=== PATIENT | male | born 1950 | race Two or more races ===

== ENCOUNTER 2016-11-25 21:10 | Inpatient (IN) | payer MEDICARE ==
[~2016-11-25] VITALS: Ht 165.1 cm; Wt 90.7 kg
[~2016-11-25 21:10] MED LIST: AMBIEN5 MG ORAL; ASPIR 8181 MG ORAL; SPIRONOLACTONE100 MG ORAL; TRAMADOL HCL50 MG ORAL; XIFAXAN200 MG ORAL
[2016-11-25 21:11] VITALS: BP 129/65
--- NOTE | 2016-11-25 21:37 | Emergency Room Report ---
History of Present Illness General Chief Complaint: Altered Level of Consciousness Source: Patient, Medical Record Present Illness HPI Patient presents by paramedics for altered mental status Initially the reports she feels the patient has taken too much sleeping pill which includes Ambien However she has any a paper from [place] past showing discharge paperwork indicating likely liver failure and hepatic encephalopathy No reports of vomiting no reports of diarrhea Patient symptoms have been worsening over the past one day No acute change in mental status however the feels that over the day he has been becoming more lethargic and slow to respond Otherwise the patient himself is a poor historian at this time lethargic and not able to respond to many questions he does open his eyes and is responsive The is also a poor historian and is not able to provide much medical input Allergies: Coded Allergies: No Known Allergies (Unverified , 11/25/16) Patient History Limited by: medical condition Past Medical History: see triage record Pertinent Family History: unable to obtain Reviewed Nursing Documentation: PMH: Agreed, PSxH: Agreed Nursing Documentation-PMH Past Medical History: No History, Except For Hx Cardiac Problems: Yes - liver Review of Systems All Other Systems: limited - Other than the ones mentioned in the history of present illness all others are reviewed however they do stay limited due to the patient's mental status Physical Exam Vital Signs Date Time Temp Pulse Resp B/P Pulse Ox O2 Delivery O2 Flow Rate FiO2 11/25/16 20:52 97.9 60 16 100/64 95 Room Air Sp02 EP Interpretation: reviewed, normal General Appearance: lethargic Head: normocephalic, atraumatic Eyes: bilateral eye EOMI, bilateral eye PERRL, bilateral eye scleral icterus ENT: hearing grossly normal, TMs + canals normal, uvula midline, dry mucus membranes Neck: full range of motion, supple, no meningismus, no bony tend Respiratory: lungs clear, normal breath sounds, no rhonchi, no respiratory distress, no retraction, no accessory muscle use Cardiovascular #1: normal peripheral pulses, regular rate, rhythm, no edema, no gallop, no JVD, no murmur Gastrointestinal: normal bowel sounds, non tender, no guarding, no hernia, no pulsatile mass, no rebound, other - Patient has a mildly distended abdomen, appears to be in line with ascites Genitourinary: no CVA tenderness Musculoskeletal: other - Patient is moving extremities without any obvious focal deficit, patient has had decreased GCS however Neurologic: motor strength/tone normal, sensory intact, other - Patient appears confused, is able to follow some very minimal commands, is not showing any signs of slurring of his speech Psychiatric: mood/affect normal Skin: jaundice Lymphatic: normal inspection, no adenopathy Medical Decision Making Diagnostic Impression: Primary Impression: Hepatic encephalopathy Additional Impressions: Hyponatremia Hyperkalemia ER Course Patient's presentation is in line with likely hepatic encephalopathy however other differentials such as Metabolic anomaly Medication reaction Intracranial pathology also entertained Patient has abnormal blood work including low sodium and high potassium Patient was provided with lactulose upon arrival Patient did not have the hyponatremia addressed with hypertonic saline in the emergency room given his presentation lack of any seizures and the likely chronic component to the patient's presentation Admitted for further inpatient care Labs Test 11/25/16 21:50 11/25/16 22:15 11/25/16 23:00 White Blood Count 8.5 K/UL (4.8-10.8) Red Blood Count 4.53 M/UL (4.70-6.10) Hemoglobin 13.5 G/DL (14.2-18.0) Hematocrit 41.5 % (42.0-52.0) Mean Corpuscular Volume 92 FL (80-99) Mean Corpuscular Hemoglobin 29.8 PG (27.0-31.0) Mean Corpuscular Hemoglobin Concent 32.5 G/DL (32.0-36.0) Red Cell Distribution Width 16.4 % (11.6-14.8) Platelet Count 149 K/UL (150-450) Mean Platelet Volume 7.7 FL (6.5-10.1) Neutrophils (%) (Auto) 74.1 % (45.0-75.0) Lymphocytes (%) (Auto) 12.4 % (20.0-45.0) Monocytes (%) (Auto) 8.6 % (1.0-10.0) Eosinophils (%) (Auto) 3.0 % (0.0-3.0) Basophils (%) (Auto) 1.9 % (0.0-2.0) Sodium Level 114 mEQ/L (135-145) Potassium Level 5.5 mEQ/L (3.4-4.9) Chloride Level 78 mEQ/L (98-107) Carbon Dioxide Level 26 mEQ/L (20-30) Anion Gap 10 (5-15) Blood Urea Nitrogen 22 mg/dL (7-23) Creatinine 1.1 mg/dL (0.7-1.2) Estimat Glomerular Filtration Rate > 60 mL/min (>60) Glucose Level 107 mg/dL (74-106) Calcium Level 9.2 mg/dL (8.6-10.2) Total Bilirubin 3.2 mg/dL (0.0-1.2) Direct Bilirubin 1.3 mg/dL (0.1-0.3) Aspartate Amino Transf (AST/SGOT) 77 U/L (5-40) Alanine Aminotransferase (ALT/SGPT) 38 U/L (3-41) Alkaline Phosphatase 115 U/L (40-129) Troponin I < 0.30 ng/mL (<=0.30) Total Protein 7.0 g/dL (6.6-8.7) Albumin 2.9 g/dL (3.5-5.2) Globulin 4.1 g/dL Albumin/Globulin Ratio 0.7 (1.0-2.7) Salicylates Level < 1 mg/dL (10-30) Acetaminophen Level < 10 ug/mL (10-30) Serum Alcohol < 10 mg/dL Ammonia 55 umol/L (16-60) Urine Color Pale yellow Urine Appearance Clear Urine pH 6.5 (4.5-8.0) Urine Specific [place] 1.010 (1.005-1.035) Urine Protein Negative (NEGATIVE) Urine Glucose (UA) Negative (NEGATIVE) Urine Ketones Negative (NEGATIVE) Urine Occult Blood Negative (NEGATIVE) Urine Nitrite Negative (NEGATIVE) Urine Bilirubin Negative (NEGATIVE) Urine Urobilinogen Normal MG/DL (0.0-1.0) Urine Leukocyte Esterase Negative (NEGATIVE) Urine Opiates Screen Negative (NEGATIVE) Urine Barbiturates Screen Negative (NEGATIVE) Phencyclidine (PCP) Screen Negative (NEGATIVE) Urine Amphetamines Screen Negative (NEGATIVE) Urine Benzodiazepines Screen Negative (NEGATIVE) Urine Cocaine Screen Negative (NEGATIVE) Urine Marijuana (THC) Screen Negative (NEGATIVE) Rhythm Strip Diag. Results EP Interpretation: yes Rate: 67 Rhythm: NSR, no PVC's, no ectopy Last Vital Signs Date Time Temp Pulse Resp B/P Pulse Ox O2 Delivery O2 Flow Rate FiO2 11/25/16 20:52 97.9 60 16 100/64 95 Room Air Status: improved Disposition: ADMITTED INPATIENT Condition: Serious DEAN KEARNS D.O. Nov 25, 2016 21:37
[2016-11-25] MEDS ORDERED: Lactulose 200 GM in NS Irrig 1000ml 700 ML RECTAL SCH (21:45)
[2016-11-25] MEDS ORDERED: Lactulose 20gm/30ml UDC ONE (21:57)
[2016-11-25 22:17] LABS: BASOPHILS % (AUTO) 1.9 % (0.0-2.0); LYMPHOCYTES % (AUTO) 12.4 % (20.0-45.0); MEAN CORPUSCULAR HEMOGLOBIN 29.8 PG (27.0-31.0); MEAN CORPUSCULAR HGB CONC 32.5 G/DL (32.0-36.0); MEAN CORPUSCULAR VOLUME 92 FL (80-99); MEAN PLATELET VOLUME 7.7 FL (6.5-10.1); MONOCYTES % (AUTO) 8.6 % (1.0-10.0); NEUTROPHILS % (AUTO) 74.1 % (45.0-75.0); PLATELET COUNT 149 K/UL (150-450); RED BLOOD COUNT 4.53 M/UL (4.70-6.10); RED CELL DISTRIBUTION WIDTH 16.4 % (11.6-14.8); WHITE BLOOD COUNT 8.5 K/UL (4.8-10.8)
[2016-11-25 22:31] LABS: TROPONIN I < 0.30 ng/mL (<=0.30)
[2016-11-25 22:36] LABS: ACETAMINOPHEN < 10 ug/mL (10-30); ALANINE AMINOTRANSFERASE 38 U/L (3-41); ALBUMIN/GLOBULIN RATIO 0.7 (1.0-2.7); ALCOHOL < 10 mg/dL; ANION GAP 10 (5-15); ASPARTATE AMINO TRANSFERASE 77 U/L (5-40); CALCIUM 9.2 mg/dL (8.6-10.2); CARBON DIOXIDE 26 mEQ/L (20-30); CHLORIDE 78 mEQ/L (98-107); CREATININE 1.1 mg/dL (0.7-1.2); GLOMERULAR FILTRATION RATE > 60 mL/min (>60); HEMOLYSIS 30; POTASSIUM 5.5 mEQ/L (3.4-4.9)
[2016-11-25] MEDS ORDERED: Lactulose 200 GM in NS Irrig 1000ml 700 ML RECTAL ONE (22:45)
[2016-11-25 22:52] LABS: SODIUM 114 mEQ/L (135-145)
[2016-11-25 23:02] VITALS: BP 93/46
[2016-11-25 23:08] LABS: BILIRUBIN,DIRECT 1.3 mg/dL (0.1-0.3)
[2016-11-25] MEDS ORDERED: Zolpidem 5mg tab ORAL PRN (23:15)
[2016-11-25] MEDS ORDERED: LORazepam Inj 2mg/ml 1ml IV PRN (23:15)
[2016-11-25] MEDS ORDERED: Morphine Sulfate 2mg/ml Inj IVP PRN (23:15)
[2016-11-25] MEDS ORDERED: Miralax 17gm pkt ORAL PRN (23:15)
[2016-11-25] MEDS ORDERED: Mylanta II UD 30ml ORAL PRN (23:15)
[2016-11-25 23:31] LABS: APPEARANCE,URINE CLEAR; KETONES,URINE NEGATIVE (NEGATIVE); LEUKOCYTE ESTERASE ,URINE NEGATIVE (NEGATIVE); NITRITE,URINE NEGATIVE (NEGATIVE); PH,URINE 6.5 (4.5-8.0); PROTEIN,URINE NEGATIVE (NEGATIVE); UROBILINOGEN,URINE NORMAL MG/DL (0.0-1.0)
[2016-11-26] VITALS (7 sets, daily range): BP systolic 99–128; BP diastolic 47–78
[2016-11-26] MEDS ORDERED: GABAPENTIN100 MG ORAL (03:07)
[2016-11-26] MEDS ORDERED: OMEPRAZOLE20 M2 ORAL (03:07)
[2016-11-26] MEDS ORDERED: FUROSEMIDE40 MG/4 ML ORAL (03:11)
[2016-11-26] MEDS ORDERED: FUROSEMIDE40 MG ORAL (03:11)
[2016-11-26] MEDS ORDERED: FUROSEMIDE80 M1 ORAL (03:11)
[2016-11-26] MEDS ORDERED: Cefepime 2gm ONE (06:15)
[2016-11-26] MEDS: Lactulose 20gm/30ml UDC ORAL SCH ×4 (06:31→17:11)
[2016-11-26] MEDS: Aspirin EC 81mg tab ORAL SCH (09:00)
[2016-11-26 10:30] LABS: BASOPHILS % (AUTO) 2.2 % (0.0-2.0); EOSINOPHILS % (AUTO) 4.1 % (0.0-3.0); MEAN CORPUSCULAR HEMOGLOBIN 29.5 PG (27.0-31.0); MEAN CORPUSCULAR HGB CONC 31.8 G/DL (32.0-36.0); MEAN CORPUSCULAR VOLUME 93 FL (80-99); MEAN PLATELET VOLUME 6.9 FL (6.5-10.1); MONOCYTES % (AUTO) 12.5 % (1.0-10.0); NEUTROPHILS % (AUTO) 66.2 % (45.0-75.0); PLATELET COUNT 132 K/UL (150-450); RED CELL DISTRIBUTION WIDTH 16.3 % (11.6-14.8); WHITE BLOOD COUNT 6.4 K/UL (4.8-10.8)
[2016-11-26 10:46] LABS: AMMONIA 106 umol/L (16-60)
[2016-11-26 10:52] LABS: ALANINE AMINOTRANSFERASE 31 U/L (3-41); ALBUMIN/GLOBULIN RATIO 0.6 (1.0-2.7); ANION GAP 14 (5-15); ASPARTATE AMINO TRANSFERASE 59 U/L (5-40); CALCIUM 8.7 mg/dL (8.6-10.2); CARBON DIOXIDE 21 mEQ/L (20-30); CHLORIDE 82 mEQ/L (98-107); CHOLESTEROL 117 mg/dL (< 200); CHOLESTEROL/HDL RATIO 3.3 (3.3-4.4); CREATININE 0.9 mg/dL (0.7-1.2); GLOMERULAR FILTRATION RATE > 60 mL/min (>60); HEMOLYSIS 5; LDL CHOLESTEROL (CALC.) 68 mg/dL (60-99); POTASSIUM 4.7 mEQ/L (3.4-4.9); TOTAL PROTEIN 5.9 g/dL (6.6-8.7)
[2016-11-26 11:46] LABS: SODIUM 117 mEQ/L (135-145)
[2016-11-26 11:57] LABS: BILIRUBIN,DIRECT 1.4 mg/dL (0.1-0.3)
--- NOTE | 2016-11-26 14:02 | GI Initial Consult Note ---
Melanie Donaldsonh Kenny N.P. 11/26/16 1402: History of Present Illness General Date patient seen: Nov 26, 2016 Time patient seen: 13:00 Reason for Hospitalization: Altered Level of Consciousness Referring physician: MARQUITA YUEN Reason for Consultation: HEPATIC ENCEPHALOPATHY Present Illness HPI Patient presents by paramedics for altered mental status Initially the reports she feels the patient has taken too much sleeping pill which includes Ambien However she has any a paper from [place] past showing discharge paperwork indicating likely liver failure and hepatic encephalopathy No reports of vomiting no reports of diarrhea Patient symptoms have been worsening over the past one day No acute change in mental status however the feels that over the day he has been becoming more lethargic and slow to respond Otherwise the patient himself is a poor historian at this time lethargic and not able to respond to many questions he does open his eyes and is responsive The is also a poor historian and is not able to provide much medical input GI NOTE: HPI as noted above. Pt seen on floor with at bedside. A&O NAD. According the , the patient appears much better than when originally admitted. The patient p/w with hepatic encephalopathy, hyponatremia, abnormal LFTs, hypoalbuminemia and elevated ammonia levels. Pt is currently pending a paracentesis. Unknown history of any endoscopic procedures. Home Meds Reported Medications Furosemide* (LASIX*) 40 Mg Tablet, 40 MG ORAL TWICE A DAY, TAB 0 Refills 11/26/16 Furosemide* (LASIX*) 80 Mg Tablet, 80 MG ORAL DAILY, TAB 11/26/16 Omeprazole (OMEPRAZOLE) 20 Mg Capsule.dr, 5 MG ORAL BEDTIME, CAP 11/26/16 Gabapentin* (GABAPENTIN*) 100 Mg Capsule, 100 MG ORAL THREE TIMES A DAY, CAP 11/26/16 Zolpidem Tartrate* (AMBIEN*) 5 Mg Tablet, 5 TAB ORAL BEDTIME Y for Insomnia, TAB 11/25/16 Aspirin* (ASPIR 81*) 81 Mg Tablet.dr, 81 MG ORAL DAILY, TAB 11/25/16 Tramadol Hcl* (ULTRAM*) 50 Mg Tablet, 50 TAB ORAL TWICE A DAY Y for For Pain, TAB 0 Refills one tab twice a day for 5 days 11/25/16 Spironolactone* (SPIRONOLACTONE*) 100 Mg Tablet, 50 MG ORAL TWICE A DAY, TAB 11/25/16 Rifaximin* (XIFAXAN*) 200 Mg Tablet, 550 TAB ORAL TWICE A DAY, MG 0 Refills One tab bid for 5 days 11/25/16 Discontinued Reported Medications Furosemide* (LASIX*) 40 Mg/4 Ml Solution, 40 TAB ORAL DAILY, TAB 11/26/16 Med list reviewed/reconciled: Yes Allergies: Coded Allergies: No Known Allergies (Unverified , 11/25/16) Patient History Limited by: medical condition History Provided By: Family Member, Medical Record PMH Narrative Limited by: medical condition Past Medical History: see triage record Pertinent Family History: unable to obtain Reviewed Nursing Documentation: PMH: Agreed, PSxH: Agreed Nursing Documentation-PMH Past Medical History: No History, Except For Hx Cardiac Problems: Yes - liver Review of Systems All Other Systems: limited Physical Exam Vital Signs Date Time Temp Pulse Resp B/P Pulse Ox O2 Delivery O2 Flow Rate FiO2 11/25/16 20:52 97.9 60 16 100/64 95 Room Air Sp02 EP Interpretation: reviewed Labs Laboratory Tests Test 11/25/16 21:50 11/25/16 22:15 11/25/16 23:00 11/26/16 09:40 White Blood Count 8.5 K/UL (4.8-10.8) 6.4 K/UL (4.8-10.8) Red Blood Count 4.53 M/UL (4.70-6.10) L 4.20 M/UL (4.70-6.10) L Hemoglobin 13.5 G/DL (14.2-18.0) L 12.4 G/DL (14.2-18.0) L Hematocrit 41.5 % (42.0-52.0) L 38.9 % (42.0-52.0) L Mean Corpuscular Volume 92 FL (80-99) 93 FL (80-99) Mean Corpuscular Hemoglobin 29.8 PG (27.0-31.0) 29.5 PG (27.0-31.0) Mean Corpuscular Hemoglobin Concent 32.5 G/DL (32.0-36.0) 31.8 G/DL (32.0-36.0) L Red Cell Distribution Width 16.4 % (11.6-14.8) H 16.3 % (11.6-14.8) H Platelet Count 149 K/UL (150-450) L 132 K/UL (150-450) L Mean Platelet Volume 7.7 FL (6.5-10.1) 6.9 FL (6.5-10.1) Neutrophils (%) (Auto) 74.1 % (45.0-75.0) 66.2 % (45.0-75.0) Lymphocytes (%) (Auto) 12.4 % (20.0-45.0) L 15.0 % (20.0-45.0) L Monocytes (%) (Auto) 8.6 % (1.0-10.0) 12.5 % (1.0-10.0) H Eosinophils (%) (Auto) 3.0 % (0.0-3.0) 4.1 % (0.0-3.0) H Basophils (%) (Auto) 1.9 % (0.0-2.0) 2.2 % (0.0-2.0) H Sodium Level 114 mEQ/L (135-145) *L 117 mEQ/L (135-145) *L Potassium Level 5.5 mEQ/L (3.4-4.9) H 4.7 mEQ/L (3.4-4.9) Chloride Level 78 mEQ/L (98-107) L 82 mEQ/L (98-107) L Carbon Dioxide Level 26 mEQ/L (20-30) 21 mEQ/L (20-30) Anion Gap 10 (5-15) 14 (5-15) Blood Urea Nitrogen 22 mg/dL (7-23) 19 mg/dL (7-23) Creatinine 1.1 mg/dL (0.7-1.2) 0.9 mg/dL (0.7-1.2) Estimat Glomerular Filtration Rate > 60 mL/min (>60) > 60 mL/min (>60) Glucose Level 107 mg/dL (74-106) H 93 mg/dL (74-106) Calcium Level 9.2 mg/dL (8.6-10.2) 8.7 mg/dL (8.6-10.2) Total Bilirubin 3.2 mg/dL (0.0-1.2) H 3.5 mg/dL (0.0-1.2) H Direct Bilirubin 1.3 mg/dL (0.1-0.3) H 1.4 mg/dL (0.1-0.3) H Aspartate Amino Transf (AST/SGOT) 77 U/L (5-40) H 59 U/L (5-40) H Alanine Aminotransferase (ALT/SGPT) 38 U/L (3-41) 31 U/L (3-41) Alkaline Phosphatase 115 U/L (40-129) 86 U/L (40-129) Troponin I < 0.30 ng/mL (<=0.30) Total Protein 7.0 g/dL (6.6-8.7) 5.9 g/dL (6.6-8.7) L Albumin 2.9 g/dL (3.5-5.2) L 2.4 g/dL (3.5-5.2) L Globulin 4.1 g/dL 3.5 g/dL Albumin/Globulin Ratio 0.7 (1.0-2.7) L 0.6 (1.0-2.7) L Salicylates Level < 1 mg/dL (10-30) L Acetaminophen Level < 10 ug/mL (10-30) L Serum Alcohol < 10 mg/dL Ammonia 55 umol/L (16-60) 106 umol/L (16-60) H Urine Color Pale yellow Urine Appearance Clear Urine pH 6.5 (4.5-8.0) Urine Specific [place] 1.010 (1.005-1.035) Urine Protein Negative (NEGATIVE) Urine Glucose (UA) Negative (NEGATIVE) Urine Ketones Negative (NEGATIVE) Urine Occult Blood Negative (NEGATIVE) Urine Nitrite Negative (NEGATIVE) Urine Bilirubin Negative (NEGATIVE) Urine Urobilinogen Normal MG/DL (0.0-1.0) Urine Leukocyte Esterase Negative (NEGATIVE) Urine Opiates Screen Negative (NEGATIVE) Urine Barbiturates Screen Negative (NEGATIVE) Phencyclidine (PCP) Screen Negative (NEGATIVE) Urine Amphetamines Screen Negative (NEGATIVE) Urine Benzodiazepines Screen Negative (NEGATIVE) Urine Cocaine Screen Negative (NEGATIVE) Urine Marijuana (THC) Screen Negative (NEGATIVE) Triglycerides Level 64 mg/dL (< 150) Cholesterol Level 117 mg/dL (< 200) LDL Cholesterol 68 mg/dL (60-99) HDL Cholesterol 36 mg/dL (> 60) Cholesterol/HDL Ratio 3.3 (3.3-4.4) Thyroid Stimulating Hormone (TSH) 2.390 uIU/mL (0.300-4.500) General Appearance: well appearing, no apparent distress, alert Head: normocephalic EENT: normal ENT inspection Neck: supple Respiratory: normal breath sounds Cardiovascular: normal rate Gastrointestinal: normal inspection, non tender, distended, ascites Rectal: deferred Genitourinary: no CVA tenderness Musculoskeletal: normal inspection, back normal Neurologic: normal inspection, alert Current Medications Current Medications Medications (Trade) Dose Ordered Sig/Sparkle Route PRN Reason Start Time Stop Time Status Last Admin Dose Admin Acetaminophen (Tylenol) 650 mg Q4H PRN ORAL fever 11/25/16 23:15 12/25/16 23:14 Al Hydroxide/Mg Hydroxide (Mylanta II) 30 ml Q6H PRN ORAL dyspepsia 11/25/16 23:15 12/25/16 23:14 Aspirin (Ecotrin) 81 mg DAILY ORAL 11/26/16 09:00 12/26/16 08:59 Cefepime HCl/ Dextrose (Maxipime/D5W 50ml) 50 ml @ 50 mls/hr EVERY 8 HOURS IVPB 11/26/16 14:00 12/03/16 13:59 11/26/16 13:34 Dextrose (Dextrose 50%) STAT PRN IV Hypoglycemia 11/25/16 23:15 12/25/16 23:14 Lactulose 30 gm 30 gm EVERY 6 HOURS ORAL 11/26/16 00:00 12/26/16 00:00 11/26/16 11:58 Lorazepam (Ativan 2mg/ml 1ml) 0.5 mg Q4H PRN IV For Anxiety 11/25/16 23:15 12/02/16 23:14 Morphine Sulfate (Morphine Sulfate) 2 mg EVERY 4 HOURS PRN IVP For Pain 11/25/16 23:15 12/02/16 23:14 Ondansetron HCl (Zofran) 4 mg Q6H PRN IVP Nausea & Vomiting 11/25/16 23:15 12/25/16 23:14 Polyethylene Glycol (Miralax) 17 gm HSPRN PRN ORAL Constipation 11/25/16 23:15 12/25/16 23:14 Zolpidem Tartrate (Ambien) 5 mg HSPRN PRN ORAL Insomnia 11/25/16 23:15 12/25/16 23:14 GI: Plan Problems: (1) Hypoalbuminemia (2) LFTs abnormal (3) Hyponatremia (4) Acute encephalopathy (5) Hepatic encephalopathy Plan ordered abdominal U/S ordered hep panel, AFP U/S paracentesis pending elevated ammonia >> lactulose + xifaxan PPI electrolyte replacement low sodium diet fu labs outpatient GI procedures >> unknown history >> recommend EGD to evaluate for esophageal varices given history of cirrhosis Discussed with Dr. Drummond. Thank you for referring this patient, we will follow. JOSELITO DRUMMOND 11/27/16 1025: History of Present Illness General Reason for Hospitalization: Altered Level of Consciousness Present Illness Home Meds Reported Medications Furosemide* (LASIX*) 40 Mg Tablet, 40 MG ORAL TWICE A DAY, TAB 0 Refills 11/26/16 Furosemide* (LASIX*) 80 Mg Tablet, 80 MG ORAL DAILY, TAB 11/26/16 Omeprazole (OMEPRAZOLE) 20 Mg Capsule.dr, 5 MG ORAL BEDTIME, CAP 11/26/16 Gabapentin* (GABAPENTIN*) 100 Mg Capsule, 100 MG ORAL THREE TIMES A DAY, CAP 11/26/16 Zolpidem Tartrate* (AMBIEN*) 5 Mg Tablet, 5 TAB ORAL BEDTIME Y for Insomnia, TAB 11/25/16 Aspirin* (ASPIR 81*) 81 Mg Tablet.dr, 81 MG ORAL DAILY, TAB 11/25/16 Tramadol Hcl* (ULTRAM*) 50 Mg Tablet, 50 TAB ORAL TWICE A DAY Y for For Pain, TAB 0 Refills one tab twice a day for 5 days 11/25/16 Spironolactone* (SPIRONOLACTONE*) 100 Mg Tablet, 50 MG ORAL TWICE A DAY, TAB 11/25/16 Rifaximin* (XIFAXAN*) 200 Mg Tablet, 550 TAB ORAL TWICE A DAY, MG 0 Refills One tab bid for 5 days 11/25/16 Discontinued Reported Medications Furosemide* (LASIX*) 40 Mg/4 Ml Solution, 40 TAB ORAL DAILY, TAB 11/26/16 Allergies: Coded Allergies: No Known Allergies (Unverified , 11/25/16) GI: Plan Plan The patient was seen and examined at bedside and all new and available data was reviewed in the patients chart. I agree with the above findings, impression and plan. (Patient seen earlier today. Signature stamp does not reflect patient encounter time.). -[facility]En[facility] Kenny N.PEmily Nov 26, 2016 14:02 JOSELITO DRUMMOND Nov 27, 2016 10:25
--- NOTE | 2016-11-26 15:24 | History and Physical ---
History of Present Illness General Date patient seen: Nov 26, 2016 Reason for Hospitalization: Altered Level of Consciousness Present Illness HPI 66 year old male with hx of end stage liver disease with recurrent ascites, presents by paramedics for altered mental status Pt was just recently discharged from [facility], with dx of liver failure and hepatic encephalopathy there are no reports of vomiting no reports of diarrhea, Patient symptoms have been worsening over the past one day Pt is lethargic and not able to respond to many questions he does open his eyes and is responsive Allergies: Coded Allergies: No Known Allergies (Unverified , 11/25/16) Medication History Scheduled Aspirin* (Aspir 81*), 81 MG ORAL DAILY, (Reported) Furosemide* (Lasix*), 80 MG ORAL DAILY, (Reported) Furosemide* (Lasix*), 40 MG ORAL TWICE A DAY, (Reported) Gabapentin* (Gabapentin*), 100 MG ORAL THREE TIMES A DAY, (Reported) Omeprazole (Omeprazole), 5 MG ORAL BEDTIME, (Reported) Rifaximin* (Xifaxan*), 550 TAB ORAL TWICE A DAY, (Reported) Spironolactone* (Spironolactone*), 50 MG ORAL TWICE A DAY, (Reported) Scheduled PRN Tramadol Hcl* (Ultram*), 50 TAB ORAL TWICE A DAY PRN for For Pain, (Reported) Zolpidem Tartrate* (Ambien*), 5 TAB ORAL BEDTIME PRN for Insomnia, (Reported) Discontinued Medications Furosemide* (Lasix*), 40 TAB ORAL DAILY, (Reported) Discontinued Reason: Prescription changed Patient History Healthcare decision maker Resuscitation status Full Code Advanced Directive on File Past Medical/Surgical History Past Medical/Surgical History: (1) End stage liver disease (2) Hepatic encephalopathy Review of Systems All Other Systems: negative except mentioned in HPI Physical Exam Lines, tubes and drains: peripheral, central line Neck: non-tender, normal alignment Respiratory/Chest: chest wall non-tender, lungs clear Genitourinary/Rectal: normal genital exam, normal rectal exam Extremities: normal range of motion Skin Exam: normal pigmentation 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 Last 24 Hour Vital Signs Date Time Temp Pulse Resp B/P Pulse Ox O2 Delivery O2 Flow Rate FiO2 11/26/16 12:00 98.6 68 19 107/70 100 Room Air 11/26/16 08:00 97.8 69 16 105/74 100 Room Air 11/26/16 04:00 98.2 65 16 114/65 98 Room Air 11/26/16 01:30 98.2 64 16 128/78 98 Room Air 11/26/16 01:05 97.9 92 13 115/47 100 Room Air 11/26/16 00:26 92 13 115/47 100 Room Air 11/25/16 23:02 97.9 62 12 93/46 96 Room Air 11/25/16 21:11 97.9 77 13 129/65 96 Room Air 11/25/16 20:52 97.9 60 16 100/64 95 Room Air Intake and Output 11/25/16 11/26/16 19:00 07:00 Intake Total 500 ml Output Total 350 ml Balance 150 ml Intake IV Total 500 ml Output Urine Total 350 ml # Voids 2 Laboratory Tests Test 11/25/16 21:50 11/25/16 22:15 11/25/16 23:00 11/26/16 09:40 White Blood Count 8.5 K/UL (4.8-10.8) 6.4 K/UL (4.8-10.8) Red Blood Count 4.53 M/UL (4.70-6.10) L 4.20 M/UL (4.70-6.10) L Hemoglobin 13.5 G/DL (14.2-18.0) L 12.4 G/DL (14.2-18.0) L Hematocrit 41.5 % (42.0-52.0) L 38.9 % (42.0-52.0) L Mean Corpuscular Volume 92 FL (80-99) 93 FL (80-99) Mean Corpuscular Hemoglobin 29.8 PG (27.0-31.0) 29.5 PG (27.0-31.0) Mean Corpuscular Hemoglobin Concent 32.5 G/DL (32.0-36.0) 31.8 G/DL (32.0-36.0) L Red Cell Distribution Width 16.4 % (11.6-14.8) H 16.3 % (11.6-14.8) H Platelet Count 149 K/UL (150-450) L 132 K/UL (150-450) L Mean Platelet Volume 7.7 FL (6.5-10.1) 6.9 FL (6.5-10.1) Neutrophils (%) (Auto) 74.1 % (45.0-75.0) 66.2 % (45.0-75.0) Lymphocytes (%) (Auto) 12.4 % (20.0-45.0) L 15.0 % (20.0-45.0) L Monocytes (%) (Auto) 8.6 % (1.0-10.0) 12.5 % (1.0-10.0) H Eosinophils (%) (Auto) 3.0 % (0.0-3.0) 4.1 % (0.0-3.0) H Basophils (%) (Auto) 1.9 % (0.0-2.0) 2.2 % (0.0-2.0) H Sodium Level 114 mEQ/L (135-145) *L 117 mEQ/L (135-145) *L Potassium Level 5.5 mEQ/L (3.4-4.9) H 4.7 mEQ/L (3.4-4.9) Chloride Level 78 mEQ/L (98-107) L 82 mEQ/L (98-107) L Carbon Dioxide Level 26 mEQ/L (20-30) 21 mEQ/L (20-30) Anion Gap 10 (5-15) 14 (5-15) Blood Urea Nitrogen 22 mg/dL (7-23) 19 mg/dL (7-23) Creatinine 1.1 mg/dL (0.7-1.2) 0.9 mg/dL (0.7-1.2) Estimat Glomerular Filtration Rate > 60 mL/min (>60) > 60 mL/min (>60) Glucose Level 107 mg/dL (74-106) H 93 mg/dL (74-106) Calcium Level 9.2 mg/dL (8.6-10.2) 8.7 mg/dL (8.6-10.2) Total Bilirubin 3.2 mg/dL (0.0-1.2) H 3.5 mg/dL (0.0-1.2) H Direct Bilirubin 1.3 mg/dL (0.1-0.3) H 1.4 mg/dL (0.1-0.3) H Aspartate Amino Transf (AST/SGOT) 77 U/L (5-40) H 59 U/L (5-40) H Alanine Aminotransferase (ALT/SGPT) 38 U/L (3-41) 31 U/L (3-41) Alkaline Phosphatase 115 U/L (40-129) 86 U/L (40-129) Troponin I < 0.30 ng/mL (<=0.30) Total Protein 7.0 g/dL (6.6-8.7) 5.9 g/dL (6.6-8.7) L Albumin 2.9 g/dL (3.5-5.2) L 2.4 g/dL (3.5-5.2) L Globulin 4.1 g/dL 3.5 g/dL Albumin/Globulin Ratio 0.7 (1.0-2.7) L 0.6 (1.0-2.7) L Salicylates Level < 1 mg/dL (10-30) L Acetaminophen Level < 10 ug/mL (10-30) L Serum Alcohol < 10 mg/dL Ammonia 55 umol/L (16-60) 106 umol/L (16-60) H Urine Color Pale yellow Urine Appearance Clear Urine pH 6.5 (4.5-8.0) Urine Specific [place] 1.010 (1.005-1.035) Urine Protein Negative (NEGATIVE) Urine Glucose (UA) Negative (NEGATIVE) Urine Ketones Negative (NEGATIVE) Urine Occult Blood Negative (NEGATIVE) Urine Nitrite Negative (NEGATIVE) Urine Bilirubin Negative (NEGATIVE) Urine Urobilinogen Normal MG/DL (0.0-1.0) Urine Leukocyte Esterase Negative (NEGATIVE) Urine Opiates Screen Negative (NEGATIVE) Urine Barbiturates Screen Negative (NEGATIVE) Phencyclidine (PCP) Screen Negative (NEGATIVE) Urine Amphetamines Screen Negative (NEGATIVE) Urine Benzodiazepines Screen Negative (NEGATIVE) Urine Cocaine Screen Negative (NEGATIVE) Urine Marijuana (THC) Screen Negative (NEGATIVE) Triglycerides Level 64 mg/dL (< 150) Cholesterol Level 117 mg/dL (< 200) LDL Cholesterol 68 mg/dL (60-99) HDL Cholesterol 36 mg/dL (> 60) Cholesterol/HDL Ratio 3.3 (3.3-4.4) Thyroid Stimulating Hormone (TSH) 2.390 uIU/mL (0.300-4.500) Height (Feet): 5 Height (Inches): 5.00 Weight (Pounds): 200 Medications Current Medications Medications (Trade) Dose Ordered Sig/Sparkle Route PRN Reason Start Time Stop Time Status Last Admin Dose Admin Acetaminophen (Tylenol) 650 mg Q4H PRN ORAL fever 11/25/16 23:15 12/25/16 23:14 Al Hydroxide/Mg Hydroxide (Mylanta II) 30 ml Q6H PRN ORAL dyspepsia 11/25/16 23:15 12/25/16 23:14 Aspirin (Ecotrin) 81 mg DAILY ORAL 11/26/16 09:00 12/26/16 08:59 Cefepime HCl/ Dextrose (Maxipime/D5W 50ml) 50 ml @ 50 mls/hr EVERY 8 HOURS IVPB 11/26/16 14:00 12/03/16 13:59 11/26/16 13:34 Dextrose (Dextrose 50%) STAT PRN IV Hypoglycemia 11/25/16 23:15 12/25/16 23:14 Lactulose 30 gm 30 gm EVERY 6 HOURS ORAL 11/26/16 00:00 12/26/16 00:00 11/26/16 11:58 Lorazepam (Ativan 2mg/ml 1ml) 0.5 mg Q4H PRN IV For Anxiety 11/25/16 23:15 12/02/16 23:14 Morphine Sulfate (Morphine Sulfate) 2 mg EVERY 4 HOURS PRN IVP For Pain 11/25/16 23:15 12/02/16 23:14 Ondansetron HCl (Zofran) 4 mg Q6H PRN IVP Nausea & Vomiting 11/25/16 23:15 12/25/16 23:14 Pantoprazole (Protonix) 40 mg DAILY IVP 11/27/16 09:00 12/27/16 08:59 Polyethylene Glycol (Miralax) 17 gm HSPRN PRN ORAL Constipation 11/25/16 23:15 12/25/16 23:14 Rifaximin (Xifaxan) 550 mg EVERY 12 HOURS ORAL 11/26/16 21:00 12/03/16 20:59 Zolpidem Tartrate (Ambien) 5 mg HSPRN PRN ORAL Insomnia 11/25/16 23:15 12/25/16 23:14 Assessment/Plan Problem List: (1) Acute encephalopathy ICD Codes: G93.40 - Encephalopathy, unspecified SNOMED: 3934575 (2) End stage liver disease ICD Codes: K72.90 - Hepatic failure, unspecified without coma SNOMED: 478069894 (3) Ascites ICD Codes: R18.8 - Other ascites SNOMED: 112912428 (4) Hypoalbuminemia ICD Codes: E88.09 - Other disorders of plasma-protein metabolism, not elsewhere classified SNOMED: 469380498 (5) Hepatic encephalopathy ICD Codes: K72.90 - Hepatic failure, unspecified without coma SNOMED: 03702851 Assessment/Plan lactulose check Na paracenthesis GI evaluation pt seems to have end stage liver disease MARQUITA EDGAR Nov 26, 2016 15:24
--- NOTE | 2016-11-26 16:26 | Consultation ---
Consult Note Consult Note asked to eval for Hyponatremia- Patient presents by paramedics for altered mental status Initially the reports she feels the patient has taken too much sleeping pill which includes Ambien However she has any a paper from [email or web address] past showing discharge paperwork indicating likely liver failure and hepatic encephalopathy No reports of vomiting no reports of diarrhea Patient symptoms have been worsening over the past one day No acute change in mental status however the feels that over the day he has been becoming more lethargic and slow to respond Otherwise the patient himself is a poor historian at this time lethargic and not able to respond to many questions he does open his eyes and is responsive The is also a poor historian and is not able to provide much medical input. Patient examined - data reviewed. Has edema, ascitis Assessment/Plan HypoNatremia related to edematous state due to Liver cirhosis- Encephalopathy- HypoAlbuminemia due to above Plan: Saline+ Slow diurese Monitor lytes and renal parameters Per orders- Optimize hepatic function- OLGA HAYNES Nov 26, 2016 16:26
--- NOTE | 2016-11-26 17:41 | Cardiology Report ---
APPROVED REPORT EKG Measurement Heart [id number] Sinus rhythm with 1st degree AV block Low voltage QRS Cannot rule out Anterior infarct, age undetermined Abnormal ECG
[2016-11-26] MEDS ORDERED: NaCl 3% 500ml 250 ML IV ONE (18:00)
[2016-11-26] MEDS: Rifaximin 550mg tab ORAL SCH (21:59)
[2016-11-27 00:01] VITALS: BP 99/58
[2016-11-27 04:00] VITALS: BP 103/55
[2016-11-27] MEDS: Lactulose 20gm/30ml UDC ORAL SCH ×4 (05:52→18:44)
[2016-11-27 06:55] LABS: INR 1.9 (0.9-1.1); PROTHROMBIN TIME 19.6 SEC (9.30-11.50)
[2016-11-27 07:23] LABS: ALANINE AMINOTRANSFERASE 30 U/L (3-41); ALBUMIN/GLOBULIN RATIO 0.6 (1.0-2.7); ANION GAP 13 (5-15); ASPARTATE AMINO TRANSFERASE 56 U/L (5-40); CALCIUM 8.6 mg/dL (8.6-10.2); CARBON DIOXIDE 22 mEQ/L (20-30); CHLORIDE 87 mEQ/L (98-107); CREATININE 0.9 mg/dL (0.7-1.2); GLOMERULAR FILTRATION RATE > 60 mL/min (>60); HEMOLYSIS 10; POTASSIUM 4.7 mEQ/L (3.4-4.9); SODIUM 122 mEQ/L (135-145); TOTAL PROTEIN 6.1 g/dL (6.6-8.7)
[2016-11-27 07:30] LABS: BASOPHILS % (AUTO) 1.7 % (0.0-2.0); EOSINOPHILS % (AUTO) 1.9 % (0.0-3.0); MEAN CORPUSCULAR HGB CONC 33.2 G/DL (32.0-36.0); MEAN CORPUSCULAR VOLUME 90 FL (80-99); MEAN PLATELET VOLUME 8.1 FL (6.5-10.1); MONOCYTES % (AUTO) 15.7 % (1.0-10.0); NEUTROPHILS % (AUTO) 71.7 % (45.0-75.0); PLATELET COUNT 129 K/UL (150-450); RED BLOOD COUNT 4.08 M/UL (4.70-6.10); RED CELL DISTRIBUTION WIDTH 16.1 % (11.6-14.8); WHITE BLOOD COUNT 7.4 K/UL (4.8-10.8)
[2016-11-27 08:00] VITALS: BP 105/66
[2016-11-27 08:32] LABS: BILIRUBIN,DIRECT 1.3 mg/dL (0.1-0.3)
[2016-11-27] MEDS: Aspirin EC 81mg tab ORAL SCH (09:00)
[2016-11-27] MEDS: Rifaximin 550mg tab ORAL SCH ×2 (09:02→21:22)
[2016-11-27] MEDS: Pantoprazole Inj IVP SCH (09:03)
--- NOTE | 2016-11-27 10:25 | General Progress Note ---
Assessment/Plan Status: unchanged Status Narrative Na a bit higher Assessment/Plan status: HypoNatremia related to edematous state due to Liver cirhosis- Encephalopathy- HypoAlbuminemia due to above Urinary Obstruction , over 450 cc retention Plan: alberts Saline+ Slow diurese Monitor lytes and renal parameters Per orders- Optimize hepatic function- Subjective ROS Limited/Unobtainable: No Constitutional: Reports: malaise, weakness Allergies: Coded Allergies: No Known Allergies (Unverified , 11/25/16) Objective Last 24 Hour Vital Signs Date Time Temp Pulse Resp B/P Pulse Ox O2 Delivery O2 Flow Rate FiO2 11/27/16 08:00 97.5 75 22 105/66 99 11/27/16 04:00 97.8 80 18 103/55 95 Room Air 11/27/16 00:01 97.5 75 18 99/58 96 Room Air 11/26/16 20:00 97.1 76 18 99/67 96 Room Air 11/26/16 16:26 98.2 67 20 105/67 100 Room Air 11/26/16 12:00 98.6 68 19 107/70 100 Room Air Intake and Output 11/26/16 11/27/16 19:00 07:00 Intake Total 150 ml 50 ml Output Total 1150 ml Balance 150 ml -1100 ml Intake Oral 150 ml IV Total 50 ml Output Urine Total 1150 ml # Voids 3 2 # Bowel Movements 1 Laboratory Tests 11/27/16 05:55: White Blood Count 7.4, Red Blood Count 4.08L, Hemoglobin 12.2L, Hematocrit 36.9L , Mean Corpuscular Volume 90, Mean Corpuscular Hemoglobin 30.0, Mean Corpuscular Hemoglobin Concent 33.2, Red Cell Distribution Width 16.1H, Platelet Count 129L, Mean Platelet Volume 8.1, Neutrophils (%) (Auto) 71.7, Lymphocytes (%) (Auto) 9.0L, Monocytes (%) (Auto) 15.7H, Eosinophils (%) (Auto) 1.9, Basophils (%) (Auto) 1.7, Prothrombin Time 19.6H, Prothromb Time International Ratio 1.9H, Activated Partial Thromboplast Time 35H, Sodium Level 122L, Potassium Level 4.7, Chloride Level 87L, Carbon Dioxide Level 22, Anion Gap 13, Blood Urea Nitrogen 15, Creatinine 0.9, Estimat Glomerular Filtration Rate > 60, Glucose Level 114H, Calcium Level 8.6, Total Bilirubin 3.4H, Direct Bilirubin 1.3H, Aspartate Amino Transf (AST/SGOT) 56H, Alanine Aminotransferase (ALT/SGPT) 30, Alkaline Phosphatase 97, Ammonia 59, Total Protein 6.1L, Albumin 2.3L, Globulin 3.8, Albumin/Globulin Ratio 0.6L, Alpha Fetoprotein [Pending], Hepatitis A IgM Antibody [Pending], Hepatitis B Surface Antigen [Pending], Hepatitis B Core IgM Antibody [Pending], Hepatitis C Antibody [Pending] Height (Feet): 5 Height (Inches): 5.00 Weight (Pounds): 200 General Appearance: lethargic, confused Neck: supple Cardiovascular: normal rate Respiratory/Chest: decreased breath sounds Abdomen: distended Edema: 1+ Arm (L), 1+ Arm (R), 1+ Leg (L), 1+ Leg (R), 1+ Pedal (L), 1+ Pedal ( R), 1+ Generalized Objective other PE not changed OLGA HAYNES Nov 27, 2016 10:25
[2016-11-27] MEDS ORDERED: NaCl 3% 500ml 500 ML IV ONE (11:00)
[2016-11-27 12:00] VITALS: BP 115/68
--- NOTE | 2016-11-27 12:13 | GI Progress Note ---
Assessment/Plan Problems: (1) Ascites ICD Codes: R18.8 - Other ascites SNOMED: 437594358 (2) Acute encephalopathy ICD Codes: G93.40 - Encephalopathy, unspecified SNOMED: 2971640 (3) End stage liver disease ICD Codes: K72.90 - Hepatic failure, unspecified without coma SNOMED: 576426417 (4) LFTs abnormal ICD Codes: R79.89 - Other specified abnormal findings of blood chemistry SNOMED: 511176869 (5) Hypoalbuminemia ICD Codes: E88.09 - Other disorders of plasma-protein metabolism, not elsewhere classified SNOMED: 619193532 (6) Hepatic encephalopathy ICD Codes: K72.90 - Hepatic failure, unspecified without coma SNOMED: 55203292 (7) Hyponatremia ICD Codes: E87.1 - Hypo-osmolality and hyponatremia SNOMED: 15102475 Status: progressing Status Narrative Discussed with Dr. Drummond. Assessment/Plan fu abdominal U/S fu hep panel, AFP U/S paracentesis pending elevated ammonia >> lactulose + xifaxan PPI electrolyte replacement low sodium diet fu labs Subjective Gastrointestinal/Abdominal: Reports: abdomen distended, no symptoms Subjective pt alert and oriented today Objective Last 24 Hour Vital Signs Date Time Temp Pulse Resp B/P Pulse Ox O2 Delivery O2 Flow Rate FiO2 11/27/16 08:00 97.5 75 22 105/66 99 11/27/16 04:00 97.8 80 18 103/55 95 Room Air 11/27/16 00:01 97.5 75 18 99/58 96 Room Air 11/26/16 20:00 97.1 76 18 99/67 96 Room Air 11/26/16 16:26 98.2 67 20 105/67 100 Room Air Intake and Output 11/26/16 11/27/16 19:00 07:00 Intake Total 150 ml 50 ml Output Total 1150 ml Balance 150 ml -1100 ml Intake Oral 150 ml IV Total 50 ml Output Urine Total 1150 ml # Voids 3 2 # Bowel Movements 1 Laboratory Tests Test 11/27/16 05:55 White Blood Count 7.4 K/UL (4.8-10.8) Red Blood Count 4.08 M/UL (4.70-6.10) L Hemoglobin 12.2 G/DL (14.2-18.0) L Hematocrit 36.9 % (42.0-52.0) L Mean Corpuscular Volume 90 FL (80-99) Mean Corpuscular Hemoglobin 30.0 PG (27.0-31.0) Mean Corpuscular Hemoglobin Concent 33.2 G/DL (32.0-36.0) Red Cell Distribution Width 16.1 % (11.6-14.8) H Platelet Count 129 K/UL (150-450) L Mean Platelet Volume 8.1 FL (6.5-10.1) Neutrophils (%) (Auto) 71.7 % (45.0-75.0) Lymphocytes (%) (Auto) 9.0 % (20.0-45.0) L Monocytes (%) (Auto) 15.7 % (1.0-10.0) H Eosinophils (%) (Auto) 1.9 % (0.0-3.0) Basophils (%) (Auto) 1.7 % (0.0-2.0) Prothrombin Time 19.6 SEC (9.30-11.50) H Prothromb Time International Ratio 1.9 (0.9-1.1) H Activated Partial Thromboplast Time 35 SEC (23-33) H Sodium Level 122 mEQ/L (135-145) L Potassium Level 4.7 mEQ/L (3.4-4.9) Chloride Level 87 mEQ/L (98-107) L Carbon Dioxide Level 22 mEQ/L (20-30) Anion Gap 13 (5-15) Blood Urea Nitrogen 15 mg/dL (7-23) Creatinine 0.9 mg/dL (0.7-1.2) Estimat Glomerular Filtration Rate > 60 mL/min (>60) Glucose Level 114 mg/dL (74-106) H Calcium Level 8.6 mg/dL (8.6-10.2) Total Bilirubin 3.4 mg/dL (0.0-1.2) H Direct Bilirubin 1.3 mg/dL (0.1-0.3) H Aspartate Amino Transf (AST/SGOT) 56 U/L (5-40) H Alanine Aminotransferase (ALT/SGPT) 30 U/L (3-41) Alkaline Phosphatase 97 U/L (40-129) Ammonia 59 umol/L (16-60) Total Protein 6.1 g/dL (6.6-8.7) L Albumin 2.3 g/dL (3.5-5.2) L Globulin 3.8 g/dL Albumin/Globulin Ratio 0.6 (1.0-2.7) L Alpha Fetoprotein Pending Hepatitis A IgM Antibody Pending Hepatitis B Surface Antigen Pending Hepatitis B Core IgM Antibody Pending Hepatitis C Antibody Pending Height (Feet): 5 Height (Inches): 5.00 Weight (Pounds): 200 General Appearance: no apparent distress, alert Cardiovascular: normal rate Respiratory/Chest: normal breath sounds, no respiratory distress Abdominal Exam: normal bowel sounds, non tender, soft, ascites Dara Donaldson N.P. Nov 27, 2016 12:13
--- NOTE | 2016-11-27 14:11 | Diagnostic Imaging Report ---
Indications: Ascites Procedure: Informed consent obtained. Ultrasound used to localize optimal puncture site. Sterile prepping and draping over the optimum site. Local anesthesia with 1% lidocaine. Under real-time ultrasound guidance, puncture of the peritoneal space performed using paracentesis needle. Digital image was saved and archived. Stylet removed. Catheter placed to vacuum bottle suction. Fluid was aspirated. Patient tolerated procedure well, without immediate complication. Findings: Followup sonography demonstrates complete resolution of peritoneal fluid Impression: Successful ultrasound-guided paracentesis, yielding 4.4 liters of fluid
--- NOTE | 2016-11-27 14:42 | Diagnostic Imaging Report ---
Indication:Abdominal pain Technique: Grayscale and duplex Doppler imaging of the abdomen performed. Comparison: None Findings: There is nodularity of the liver which appears coarsened in echotexture. There is ascites present. The retroperitoneum including the pancreas and aorta are obscured and not seen on this study. The gallbladder wall appears moderately thick. No obvious gallstones identified. There are small cysts present within the liver. There is no hydronephrosis. Spleen is normal in size. Impression: Liver cirrhosis. Mild ascites. Liver cysts Thickened gallbladder wall, nonspecific
[2016-11-27] MEDS ORDERED: Morphine Sulfate 4mg/ml Inj IVP PRN (14:45)
[2016-11-27 16:22] VITALS: BP 97/51
--- NOTE | 2016-11-27 18:25 | Pulmonology Progress Note ---
Assessment/Plan Problems: (1) Acute encephalopathy (2) End stage liver disease (3) Ascites (4) Hypoalbuminemia (5) Hepatic encephalopathy Assessment/Plan improving NA better check electrolytes d/w about palliative care once Na is better, we will send him hose under hospice care. Subjective ROS Limited/Unobtainable: No Interval Events: had paracenthesis, 4/5 liter removed Allergies: Coded Allergies: No Known Allergies (Unverified , 11/25/16) Objective Last 24 Hour Vital Signs Date Time Temp Pulse Resp B/P Pulse Ox O2 Delivery O2 Flow Rate FiO2 11/27/16 16:22 98.2 70 20 97/51 97 Room Air 11/27/16 12:00 97.5 75 21 115/68 95 Room Air 11/27/16 08:00 97.5 75 22 105/66 99 11/27/16 04:00 97.8 80 18 103/55 95 Room Air 11/27/16 00:01 97.5 75 18 99/58 96 Room Air 11/26/16 20:00 97.1 76 18 99/67 96 Room Air Intake and Output 11/26/16 11/27/16 19:00 07:00 Intake Total 150 ml 50 ml Output Total 1150 ml Balance 150 ml -1100 ml Intake Oral 150 ml IV Total 50 ml Output Urine Total 1150 ml # Voids 3 2 # Bowel Movements 1 General Appearance: cachetic Respiratory/Chest: chest wall non-tender, lungs clear Cardiovascular: normal peripheral pulses, normal rate Extremities: no cyanosis, pedal pulses normal Neurologic/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 II-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 grossly normal Laboratory Tests 11/27/16 05:55: White Blood Count 7.4, Red Blood Count 4.08L, Hemoglobin 12.2L, Hematocrit 36.9L , Mean Corpuscular Volume 90, Mean Corpuscular Hemoglobin 30.0, Mean Corpuscular Hemoglobin Concent 33.2, Red Cell Distribution Width 16.1H, Platelet Count 129L, Mean Platelet Volume 8.1, Neutrophils (%) (Auto) 71.7, Lymphocytes (%) (Auto) 9.0L, Monocytes (%) (Auto) 15.7H, Eosinophils (%) (Auto) 1.9, Basophils (%) (Auto) 1.7, Prothrombin Time 19.6H, Prothromb Time International Ratio 1.9H, Activated Partial Thromboplast Time 35H, Sodium Level 122L, Potassium Level 4.7, Chloride Level 87L, Carbon Dioxide Level 22, Anion Gap 13, Blood Urea Nitrogen 15, Creatinine 0.9, Estimat Glomerular Filtration Rate > 60, Glucose Level 114H, Calcium Level 8.6, Total Bilirubin 3.4H, Direct Bilirubin 1.3H, Aspartate Amino Transf (AST/SGOT) 56H, Alanine Aminotransferase (ALT/SGPT) 30, Alkaline Phosphatase 97, Ammonia 59, Total Protein 6.1L, Albumin 2.3L, Globulin 3.8, Albumin/Globulin Ratio 0.6L, Alpha Fetoprotein [Pending], Hepatitis A IgM Antibody [Pending], Hepatitis B Surface Antigen [Pending], Hepatitis B Core IgM Antibody [Pending], Hepatitis C Antibody [Pending] Current Medications Medications (Trade) Dose Ordered Sig/Sparkle Route PRN Reason Start Time Stop Time Status Last Admin Dose Admin Acetaminophen (Tylenol) 650 mg Q4H PRN ORAL fever 11/25/16 23:15 12/25/16 23:14 11/27/16 14:38 Aspirin (Ecotrin) 81 mg DAILY ORAL 11/26/16 09:00 12/26/16 08:59 Cefepime HCl/ Dextrose (Maxipime/D5W 50ml) 50 ml @ 50 mls/hr EVERY 8 HOURS IVPB 11/26/16 14:00 12/03/16 13:59 11/27/16 14:02 Dextrose STAT PRN IV Hypoglycemia 11/25/16 23:15 12/25/16 23:14 Furosemide (Lasix) 20 mg EVERY 8 HOURS IV 11/26/16 22:00 12/26/16 21:59 11/27/16 14:01 Lactulose (Cephulac) 30 gm TID ORAL 11/27/16 13:00 12/27/16 12:59 11/27/16 14:00 Lorazepam (Ativan 2mg/ml 1ml) 0.5 mg Q4H PRN IV For Anxiety 11/25/16 23:15 12/02/16 23:14 Morphine Sulfate (Morphine Sulfate) 4 mg Q4H PRN IVP Severe Pain (Pain Scale 7-10) 11/27/16 14:45 12/04/16 14:44 Ondansetron HCl (Zofran) 4 mg Q6H PRN IVP Nausea & Vomiting 11/25/16 23:15 12/25/16 23:14 Pantoprazole (Protonix) 40 mg DAILY IVP 11/27/16 09:00 12/27/16 08:59 11/27/16 09:03 Polyethylene Glycol (Miralax) 17 gm HSPRN PRN ORAL Constipation 11/25/16 23:15 12/25/16 23:14 Rifaximin (Xifaxan) 550 mg EVERY 12 HOURS ORAL 11/26/16 21:00 12/03/16 20:59 11/27/16 09:02 Sodium Chloride (Hypertonic Saline) 500 ml @ 30 mls/hr ONCE ONCE IV 11/27/16 11:00 11/28/16 03:39 11/27/16 11:28 Temazepam 7.5 mg 7.5 mg HSPRN PRN ORAL Insomnia 11/27/16 10:30 12/04/16 10:29 MARQUITA EDGAR Nov 27, 2016 18:25
[2016-11-27 20:35] VITALS: BP 115/65
[2016-11-27 22:52] LABS: APPEARANCE, BODY FLUID HAZY; BD FL VOLUME 24 mL
[2016-11-27 22:53] LABS: BD FL SOURCE PERITONEAL; BODY FLUID NUCLEATED CELLS 35 /CUMM; BODY FLUID RBC 580 /CUMM; MONONUCLEAR WBC 83 %; POLYMORPHONUCLEAR WBC 12 %
[2016-11-28] VITALS: BP 113/61
[2016-11-28 04:00] VITALS: BP 110/66
[2016-11-28 07:48] LABS: BASOPHILS % (AUTO) 1.8 % (0.0-2.0); EOSINOPHILS % (AUTO) 2.8 % (0.0-3.0); LYMPHOCYTES % (AUTO) 12.3 % (20.0-45.0); MEAN CORPUSCULAR HGB CONC 34.2 G/DL (32.0-36.0); MEAN CORPUSCULAR VOLUME 91 FL (80-99); MEAN PLATELET VOLUME 7.7 FL (6.5-10.1); MONOCYTES % (AUTO) 14.1 % (1.0-10.0); PLATELET COUNT 124 K/UL (150-450); RED BLOOD COUNT 3.92 M/UL (4.70-6.10); RED CELL DISTRIBUTION WIDTH 16.2 % (11.6-14.8); WHITE BLOOD COUNT 7.4 K/UL (4.8-10.8)
[2016-11-28 08:00] VITALS: BP 113/68
[2016-11-28 08:06] LABS: ALANINE AMINOTRANSFERASE 28 U/L (3-41); ALBUMIN/GLOBULIN RATIO 0.7 (1.0-2.7); ANION GAP 13 (5-15); ASPARTATE AMINO TRANSFERASE 49 U/L (5-40); CALCIUM 8.4 mg/dL (8.6-10.2); CARBON DIOXIDE 24 mEQ/L (20-30); CHLORIDE 87 mEQ/L (98-107); GLOMERULAR FILTRATION RATE > 60 mL/min (>60); HEMOLYSIS 2; MAGNESIUM 1.6 mg/dL (1.7-2.5); PHOSPHORUS 3.1 mg/dL (2.5-4.8); POTASSIUM 4.5 mEQ/L (3.4-4.9); SODIUM 124 mEQ/L (135-145)
[2016-11-28] MEDS: Lactulose 20gm/30ml UDC ORAL SCH ×3 (08:24→16:57)
[2016-11-28] MEDS: Pantoprazole Inj IVP SCH (08:25)
[2016-11-28] MEDS: Rifaximin 550mg tab ORAL SCH ×2 (08:25→20:57)
[2016-11-28] MEDS: Aspirin EC 81mg tab ORAL SCH (08:25)
[2016-11-28 08:43] LABS: BILIRUBIN,DIRECT 1.5 mg/dL (0.1-0.3)
[2016-11-28 09:19] LABS: INR 1.7 (0.9-1.1); PROTHROMBIN TIME 18.1 SEC (9.30-11.50)
[2016-11-28 12:00] VITALS: BP 120/75
--- NOTE | 2016-11-28 12:28 | General Progress Note ---
Assessment/Plan Status: unchanged Status Narrative Na 124 today Assessment/Plan status: HypoNatremia related to edematous state due to Liver cirhosis- Encephalopathy- HypoAlbuminemia due to above Urinary Obstruction , over 450 cc retention Plan: alberts Saline+ Slow diurese Monitor lytes and renal parameters Per orders- Optimize hepatic function- Subjective ROS Limited/Unobtainable: No Constitutional: Reports: malaise, weakness Allergies: Coded Allergies: No Known Allergies (Unverified , 11/25/16) Objective Last 24 Hour Vital Signs Date Time Temp Pulse Resp B/P Pulse Ox O2 Delivery O2 Flow Rate FiO2 11/28/16 08:00 98.1 74 18 113/68 99 Room Air 11/28/16 04:00 98.0 74 20 110/66 99 Room Air 11/28/16 00:00 98.2 70 20 113/61 100 Room Air 11/27/16 20:35 97.5 72 20 115/65 100 Room Air 11/27/16 16:22 98.2 70 20 97/51 97 Room Air Intake and Output 11/27/16 11/28/16 19:00 07:00 Intake Total 120 ml 240 ml Output Total 200 ml 600 ml Balance -80 ml -360 ml Intake Oral 120 ml 240 ml Output Urine Total 200 ml 600 ml # Voids 2 Laboratory Tests 11/27/16 19:00: Body Fluid Source Peritoneal, Body Fluid Volume 24, Body Fluid Appearance Hazy, Body Fluid RBC 580, Body Fluid Total Nucleated Cells 35, Body Fluid Polynuclear WBCs (%) 12, Body Fluid Mononuclear WBCs (%) 83, Body Fluid Mesothelial Cells (% ) 5, Body Fluid Glucose [Pending], Body Fluid Total Protein [Pending], Body Fluid Albumin [Pending] 11/28/16 06:55: White Blood Count 7.4, Red Blood Count 3.92L, Hemoglobin 12.1L, Hematocrit 35.5L , Mean Corpuscular Volume 91, Mean Corpuscular Hemoglobin 31.0, Mean Corpuscular Hemoglobin Concent 34.2, Red Cell Distribution Width 16.2H, Platelet Count 124L, Mean Platelet Volume 7.7, Neutrophils (%) (Auto) 69.0, Lymphocytes (%) (Auto) 12.3L, Monocytes (%) (Auto) 14.1H, Eosinophils (%) (Auto ) 2.8, Basophils (%) (Auto) 1.8, Prothrombin Time 18.1H, Prothromb Time International Ratio 1.7H, Activated Partial Thromboplast Time 35H, Sodium Level 124L, Potassium Level 4.5, Chloride Level 87L, Carbon Dioxide Level 24, Anion Gap 13, Blood Urea Nitrogen 16, Creatinine 1.0, Estimat Glomerular Filtration Rate > 60, Glucose Level 99, Calcium Level 8.4L, Phosphorus Level 3.1, Magnesium Level 1.6L, Total Bilirubin 3.9H, Direct Bilirubin 1.5H, Aspartate Amino Transf (AST/SGOT) 49H, Alanine Aminotransferase (ALT/SGPT) 28, Alkaline Phosphatase 102, Total Protein 6.0L, Albumin 2.5L, Globulin 3.5, Albumin/ Globulin Ratio 0.7L Height (Feet): 5 Height (Inches): 5.00 Weight (Pounds): 200 General Appearance: no apparent distress, lethargic, confused Cardiovascular: regular rhythm Respiratory/Chest: decreased breath sounds Abdomen: distended Objective other PE not changed OLGA AHYNES Nov 28, 2016 12:28
[2016-11-28] MEDS ORDERED: NaCl 3% 500ml 500 ML IV ONE (13:00)
--- NOTE | 2016-11-28 14:29 | GI Progress Note ---
Assessment/Plan Problems: (1) Ascites ICD Codes: R18.8 - Other ascites SNOMED: 238723464 (2) Acute encephalopathy ICD Codes: G93.40 - Encephalopathy, unspecified SNOMED: 4110535 (3) End stage liver disease ICD Codes: K72.90 - Hepatic failure, unspecified without coma SNOMED: 919432248 (4) LFTs abnormal ICD Codes: R79.89 - Other specified abnormal findings of blood chemistry SNOMED: 402671139 (5) Hypoalbuminemia ICD Codes: E88.09 - Other disorders of plasma-protein metabolism, not elsewhere classified SNOMED: 673525423 (6) Hepatic encephalopathy ICD Codes: K72.90 - Hepatic failure, unspecified without coma SNOMED: 89979271 (7) Hyponatremia ICD Codes: E87.1 - Hypo-osmolality and hyponatremia SNOMED: 73409377 Status: stable Status Narrative Discussed with Dr. Drummond. Assessment/Plan ok DC per GI standpoint abdominal U/S reviewed >> cirrhosis. fu hep panel, AFP s/p paracentesis elevated ammonia >> lactulose + xifaxan PPI electrolyte replacement low sodium diet fu labs Subjective Gastrointestinal/Abdominal: Reports: no symptoms Subjective pt alert and oriented today Objective Last 24 Hour Vital Signs Date Time Temp Pulse Resp B/P Pulse Ox O2 Delivery O2 Flow Rate FiO2 11/28/16 12:00 98.1 76 18 120/75 98 Room Air 11/28/16 08:00 98.1 74 18 113/68 99 Room Air 11/28/16 04:00 98.0 74 20 110/66 99 Room Air 11/28/16 00:00 98.2 70 20 113/61 100 Room Air 11/27/16 20:35 97.5 72 20 115/65 100 Room Air 11/27/16 16:22 98.2 70 20 97/51 97 Room Air Intake and Output 11/27/16 11/28/16 19:00 07:00 Intake Total 120 ml 240 ml Output Total 200 ml 600 ml Balance -80 ml -360 ml Intake Oral 120 ml 240 ml Output Urine Total 200 ml 600 ml # Voids 2 Laboratory Tests Test 11/27/16 19:00 11/28/16 06:55 Body Fluid Source Peritoneal Body Fluid Volume 24 mL Body Fluid Appearance Hazy Body Fluid RBC 580 /CUMM Body Fluid Total Nucleated Cells 35 /CUMM Body Fluid Polynuclear WBCs (%) 12 % Body Fluid Mononuclear WBCs (%) 83 % Body Fluid Mesothelial Cells (%) 5 % Body Fluid Glucose Pending Body Fluid Total Protein Pending Body Fluid Albumin Pending White Blood Count 7.4 K/UL (4.8-10.8) Red Blood Count 3.92 M/UL (4.70-6.10) L Hemoglobin 12.1 G/DL (14.2-18.0) L Hematocrit 35.5 % (42.0-52.0) L Mean Corpuscular Volume 91 FL (80-99) Mean Corpuscular Hemoglobin 31.0 PG (27.0-31.0) Mean Corpuscular Hemoglobin Concent 34.2 G/DL (32.0-36.0) Red Cell Distribution Width 16.2 % (11.6-14.8) H Platelet Count 124 K/UL (150-450) L Mean Platelet Volume 7.7 FL (6.5-10.1) Neutrophils (%) (Auto) 69.0 % (45.0-75.0) Lymphocytes (%) (Auto) 12.3 % (20.0-45.0) L Monocytes (%) (Auto) 14.1 % (1.0-10.0) H Eosinophils (%) (Auto) 2.8 % (0.0-3.0) Basophils (%) (Auto) 1.8 % (0.0-2.0) Prothrombin Time 18.1 SEC (9.30-11.50) H Prothromb Time International Ratio 1.7 (0.9-1.1) H Activated Partial Thromboplast Time 35 SEC (23-33) H Sodium Level 124 mEQ/L (135-145) L Potassium Level 4.5 mEQ/L (3.4-4.9) Chloride Level 87 mEQ/L (98-107) L Carbon Dioxide Level 24 mEQ/L (20-30) Anion Gap 13 (5-15) Blood Urea Nitrogen 16 mg/dL (7-23) Creatinine 1.0 mg/dL (0.7-1.2) Estimat Glomerular Filtration Rate > 60 mL/min (>60) Glucose Level 99 mg/dL (74-106) Calcium Level 8.4 mg/dL (8.6-10.2) L Phosphorus Level 3.1 mg/dL (2.5-4.8) Magnesium Level 1.6 mg/dL (1.7-2.5) L Total Bilirubin 3.9 mg/dL (0.0-1.2) H Direct Bilirubin 1.5 mg/dL (0.1-0.3) H Aspartate Amino Transf (AST/SGOT) 49 U/L (5-40) H Alanine Aminotransferase (ALT/SGPT) 28 U/L (3-41) Alkaline Phosphatase 102 U/L (40-129) Total Protein 6.0 g/dL (6.6-8.7) L Albumin 2.5 g/dL (3.5-5.2) L Globulin 3.5 g/dL Albumin/Globulin Ratio 0.7 (1.0-2.7) L Microbiology Date/Time Source Procedure Growth Status 11/27/16 19:00 Abdominal Fluid Gram Stain - Final Resulted 11/27/16 19:00 Abdominal Fluid Body Fluid Culture Pending Resulted Height (Feet): 5 Height (Inches): 5.00 Weight (Pounds): 200 General Appearance: no apparent distress, alert Cardiovascular: normal rate Respiratory/Chest: normal breath sounds, no respiratory distress Abdominal Exam: normal bowel sounds, non tender, soft Objective Procedure: US ABD Complete Indication:Abdominal pain Impression: Liver cirrhosis. Mild ascites. Liver cysts Thickened gallbladder wall, nonspecific Dara Donaldson N.P. Nov 28, 2016 14:29
[2016-11-28 16:00] VITALS: BP 100/59
--- NOTE | 2016-11-28 18:18 | Pulmonology Progress Note ---
Assessment/Plan Problems: (1) Acute encephalopathy (2) End stage liver disease (3) Ascites (4) Hypoalbuminemia (5) Hepatic encephalopathy Assessment/Plan improving NA better check electrolytes d/w about palliative care once Na is better, we will send him hose under hospice care. Subjective ROS Limited/Unobtainable: Yes Constitutional: Reports: fatigue Respiratory: Reports: dyspnea at rest, productive cough, shortness of breath Musculoskeletal: Reports: pain, stiffness, swelling Allergies: Coded Allergies: No Known Allergies (Unverified , 11/25/16) Objective Last 24 Hour Vital Signs Date Time Temp Pulse Resp B/P Pulse Ox O2 Delivery O2 Flow Rate FiO2 11/28/16 12:00 98.1 76 18 120/75 98 Room Air 11/28/16 08:00 98.1 74 18 113/68 99 Room Air 11/28/16 04:00 98.0 74 20 110/66 99 Room Air 11/28/16 00:00 98.2 70 20 113/61 100 Room Air 11/27/16 20:35 97.5 72 20 115/65 100 Room Air Intake and Output 11/27/16 11/28/16 19:00 07:00 Intake Total 120 ml 240 ml Output Total 200 ml 600 ml Balance -80 ml -360 ml Intake Oral 120 ml 240 ml Output Urine Total 200 ml 600 ml # Voids 2 General Appearance: no acute distress HEENT: normocephalic, atraumatic, PERRL Respiratory/Chest: chest wall non-tender, lungs clear, normal breath sounds Cardiovascular: normal peripheral pulses, normal rate, regular rhythm Abdomen: absent bowel sounds, distended, guarding, tender, rebound tenderness, mass, hepatomegaly Extremities: no cyanosis Skin: rash, lesions Neurologic/Psychiatric: responsive, abnormal CN, disoriented, depressed affect Microbiology Date/Time Source Procedure Growth Status 11/27/16 19:00 Abdominal Fluid Gram Stain - Final Resulted 11/27/16 19:00 Abdominal Fluid Body Fluid Culture Pending Resulted Laboratory Tests 11/27/16 19:00: Body Fluid Source Peritoneal, Body Fluid Volume 24, Body Fluid Appearance Hazy, Body Fluid RBC 580, Body Fluid Total Nucleated Cells 35, Body Fluid Polynuclear WBCs (%) 12, Body Fluid Mononuclear WBCs (%) 83, Body Fluid Mesothelial Cells (% ) 5, Body Fluid Glucose [Pending], Body Fluid Total Protein [Pending], Body Fluid Albumin [Pending] 11/28/16 06:55: White Blood Count 7.4, Red Blood Count 3.92L, Hemoglobin 12.1L, Hematocrit 35.5L , Mean Corpuscular Volume 91, Mean Corpuscular Hemoglobin 31.0, Mean Corpuscular Hemoglobin Concent 34.2, Red Cell Distribution Width 16.2H, Platelet Count 124L, Mean Platelet Volume 7.7, Neutrophils (%) (Auto) 69.0, Lymphocytes (%) (Auto) 12.3L, Monocytes (%) (Auto) 14.1H, Eosinophils (%) (Auto ) 2.8, Basophils (%) (Auto) 1.8, Prothrombin Time 18.1H, Prothromb Time International Ratio 1.7H, Activated Partial Thromboplast Time 35H, Sodium Level 124L, Potassium Level 4.5, Chloride Level 87L, Carbon Dioxide Level 24, Anion Gap 13, Blood Urea Nitrogen 16, Creatinine 1.0, Estimat Glomerular Filtration Rate > 60, Glucose Level 99, Calcium Level 8.4L, Phosphorus Level 3.1, Magnesium Level 1.6L, Total Bilirubin 3.9H, Direct Bilirubin 1.5H, Aspartate Amino Transf (AST/SGOT) 49H, Alanine Aminotransferase (ALT/SGPT) 28, Alkaline Phosphatase 102, Total Protein 6.0L, Albumin 2.5L, Globulin 3.5, Albumin/ Globulin Ratio 0.7L Current Medications Medications (Trade) Dose Ordered Sig/Sparkle Route PRN Reason Start Time Stop Time Status Last Admin Dose Admin Acetaminophen (Tylenol) 650 mg Q4H PRN ORAL fever 11/25/16 23:15 12/25/16 23:14 11/27/16 14:38 Aspirin (Ecotrin) 81 mg DAILY ORAL 11/26/16 09:00 12/26/16 08:59 11/28/16 08:25 Cefepime HCl/ Dextrose (Maxipime/D5W 50ml) 50 ml @ 50 mls/hr Q12HR IVPB 11/29/16 09:00 12/03/16 08:59 Dextrose (Dextrose 50%) STAT PRN IV Hypoglycemia 11/25/16 23:15 12/25/16 23:14 Furosemide (Lasix) 20 mg EVERY 8 HOURS IV 11/26/16 22:00 12/26/16 21:59 11/28/16 14:13 Lactulose (Cephulac) 30 gm TID ORAL 11/27/16 13:00 12/27/16 12:59 11/28/16 16:57 Lorazepam (Ativan 2mg/ml 1ml) 0.5 mg Q4H PRN IV For Anxiety 11/25/16 23:15 12/02/16 23:14 Morphine Sulfate 4 mg 4 mg Q4H PRN IVP Severe Pain (Pain Scale 7-10) 11/27/16 14:45 12/04/16 14:44 Ondansetron HCl (Zofran) 4 mg Q6H PRN IVP Nausea & Vomiting 11/25/16 23:15 12/25/16 23:14 Pantoprazole (Protonix) 40 mg DAILY IVP 11/27/16 09:00 12/27/16 08:59 11/28/16 08:25 Polyethylene Glycol (Miralax) 17 gm HSPRN PRN ORAL Constipation 11/25/16 23:15 12/25/16 23:14 Rifaximin (Xifaxan) 550 mg EVERY 12 HOURS ORAL 11/26/16 21:00 12/03/16 20:59 11/28/16 08:25 Sodium Chloride 500 ml @ 30 mls/hr ONCE ONCE IV 11/28/16 13:00 11/29/16 05:39 11/28/16 15:43 Temazepam (Restoril) 7.5 mg HSPRN PRN ORAL Insomnia 11/27/16 10:30 12/04/16 10:29 MARQUITA EDGAR Nov 28, 2016 18:18
[2016-11-28 19:00] VITALS: BP 108/55
[2016-11-29] VITALS: BP 111/59
[2016-11-29 04:00] VITALS: BP 126/76
[2016-11-29 07:20] LABS: MEAN CORPUSCULAR VOLUME 91 FL (80-99); MEAN PLATELET VOLUME 7.1 FL (6.5-10.1); PLATELET COUNT 82 K/UL (150-450); RED BLOOD COUNT 4.34 M/UL (4.70-6.10); RED CELL DISTRIBUTION WIDTH 16.9 % (11.6-14.8); WHITE BLOOD COUNT 6.7 K/UL (4.8-10.8)
[2016-11-29 07:35] LABS: ALANINE AMINOTRANSFERASE 29 U/L (3-41); ALBUMIN/GLOBULIN RATIO 0.6 (1.0-2.7); ANION GAP 16 (5-15); ASPARTATE AMINO TRANSFERASE 57 U/L (5-40); CALCIUM 8.4 mg/dL (8.6-10.2); CARBON DIOXIDE 21 mEQ/L (20-30); CHLORIDE 88 mEQ/L (98-107); CREATININE 0.8 mg/dL (0.7-1.2); GLOMERULAR FILTRATION RATE > 60 mL/min (>60); HEMOLYSIS 43; POTASSIUM 4.5 mEQ/L (3.4-4.9); SODIUM 125 mEQ/L (135-145); TOTAL PROTEIN 5.9 g/dL (6.6-8.7)
[2016-11-29 07:36] LABS: COMMENT,BODY FLUID PATHOLOGIST COMMENT
[2016-11-29 07:47] LABS: BILIRUBIN,DIRECT 1.2 mg/dL (0.1-0.3)
[2016-11-29] MEDS: Lactulose 20gm/30ml UDC ORAL SCH ×2 (08:07→13:25)
[2016-11-29] MEDS: Rifaximin 550mg tab ORAL SCH (08:08)
[2016-11-29] MEDS: Aspirin EC 81mg tab ORAL SCH (08:08)
[2016-11-29] MEDS: Pantoprazole Inj IVP SCH (08:08)
[2016-11-29 08:10] LABS: BAND NEUTROPHILS % (MANUAL) 1 % (0-8); BASOPHILS % (MANUAL) 1 % (0-2); EOSINOPHILS % (MANUAL) 2 % (0-3); LYMPHOCYTES % (MANUAL) 11 % (20-45); NEUTROPHILS % (MANUAL) 80 % (45-75); PLATELET ESTIMATE DECREASED; PLATELET MORPHOLOGY NORMAL; TOTAL CELLS COUNTED 100
[2016-11-29 08:57] VITALS: BP 126/73
--- NOTE | 2016-11-29 11:32 | General Progress Note ---
Assessment/Plan Status: stable Assessment/Plan status: HypoNatremia related to edematous state due to Liver cirhosis- Encephalopathy- HypoAlbuminemia due to above Urinary Obstruction , over 450 cc retention Plan: alberts PO Lasix and Aldactone- Monitor lytes and renal parameters Per orders- Optimize hepatic function- Diet to low Na Subjective ROS Limited/Unobtainable: No Constitutional: Reports: malaise, weakness Allergies: Coded Allergies: No Known Allergies (Unverified , 11/25/16) Objective Last 24 Hour Vital Signs Date Time Temp Pulse Resp B/P Pulse Ox O2 Delivery O2 Flow Rate FiO2 11/29/16 08:57 97.9 84 16 126/73 100 Room Air 11/29/16 04:00 98.2 73 18 126/76 98 Room Air 11/29/16 00:00 98.0 72 18 111/59 98 Room Air 11/28/16 19:00 96.6 75 20 108/55 98 Room Air 11/28/16 16:00 96.6 78 18 100/59 98 Room Air 11/28/16 12:00 98.1 76 18 120/75 98 Room Air Intake and Output 11/28/16 11/29/16 18:59 06:59 Intake Total 360 ml 360 ml Output Total 1400 ml 200 ml Balance -1040 ml 160 ml Intake Oral 360 ml 360 ml Output Urine Total 1400 ml 200 ml # Voids 4 # Bowel Movements 1 Laboratory Tests 11/29/16 05:05: White Blood Count 6.7, Red Blood Count 4.34L, Hemoglobin 13.5L, Hematocrit 39.6L , Mean Corpuscular Volume 91, Mean Corpuscular Hemoglobin 31.0, Mean Corpuscular Hemoglobin Concent 34.0, Red Cell Distribution Width 16.9H, Platelet Count 82L, Mean Platelet Volume 7.1, Neutrophils (%) (Auto) , Lymphocytes (%) (Auto) , Monocytes (%) (Auto) , Eosinophils (%) (Auto) , Basophils (%) (Auto) , Differential Total Cells Counted 100, Neutrophils % ( Manual) 80H, Lymphocytes % (Manual) 11L, Monocytes % (Manual) 5, Eosinophils % ( Manual) 2, Basophils % (Manual) 1, Band Neutrophils 1, Platelet Estimate DecreasedL, Platelet Morphology Normal, Red Blood Cell Morphology Normal, Sodium Level 125L, Potassium Level 4.5, Chloride Level 88L, Carbon Dioxide Level 21, Anion Gap 16H, Blood Urea Nitrogen 16, Creatinine 0.8, Estimat Glomerular Filtration Rate > 60, Glucose Level 132H, Calcium Level 8.4L, Magnesium Level 2.2, Total Bilirubin 3.2H, Direct Bilirubin 1.2H, Aspartate Amino Transf (AST/SGOT) 57H, Alanine Aminotransferase (ALT/SGPT) 29, Alkaline Phosphatase 122, Total Protein 5.9L, Albumin 2.4L, Globulin 3.5, Albumin/ Globulin Ratio 0.6L, Cortisol AM Sample [Pending] Height (Feet): 5 Height (Inches): 5.00 Weight (Pounds): 200 General Appearance: no apparent distress Cardiovascular: normal rate Respiratory/Chest: decreased breath sounds Abdomen: distended, other - ascitis Edema: 1+ Arm (L), 1+ Arm (R), 1+ Leg (L), 1+ Leg (R), 1+ Pedal (L), 1+ Pedal ( R), 1+ Generalized Objective other PE not changed OLGA HAYNES Nov 29, 2016 11:32
[2016-11-29 11:43] VITALS: BP 114/75
[2016-11-29] MEDS ORDERED: Spironolactone 25mg tab ORAL ONE (12:45)
--- NOTE | 2016-11-29 13:25 | GI Progress Note ---
Assessment/Plan Problems: (1) Ascites ICD Codes: R18.8 - Other ascites SNOMED: 605091129 (2) Acute encephalopathy ICD Codes: G93.40 - Encephalopathy, unspecified SNOMED: 4376806 (3) End stage liver disease ICD Codes: K72.90 - Hepatic failure, unspecified without coma SNOMED: 286712257 (4) LFTs abnormal ICD Codes: R79.89 - Other specified abnormal findings of blood chemistry SNOMED: 770118709 (5) Hypoalbuminemia ICD Codes: E88.09 - Other disorders of plasma-protein metabolism, not elsewhere classified SNOMED: 577082537 (6) Hepatic encephalopathy ICD Codes: K72.90 - Hepatic failure, unspecified without coma SNOMED: 99793774 (7) Hyponatremia ICD Codes: E87.1 - Hypo-osmolality and hyponatremia SNOMED: 00812395 Status: stable, unchanged Status Narrative Discussed with Dr. Drummond. Assessment/Plan ok DC per GI standpoint abdominal U/S reviewed >> cirrhosis. fu hep panel >> negative AFP elevation s/p paracentesis elevated ammonia >> lactulose + xifaxan PPI electrolyte replacement low sodium diet fu labs Subjective Subjective pt alert and oriented today Objective Last 24 Hour Vital Signs Date Time Temp Pulse Resp B/P Pulse Ox O2 Delivery O2 Flow Rate FiO2 11/29/16 11:43 98.1 84 16 114/75 99 Room Air 11/29/16 08:57 97.9 84 16 126/73 100 Room Air 11/29/16 04:00 98.2 73 18 126/76 98 Room Air 11/29/16 00:00 98.0 72 18 111/59 98 Room Air 11/28/16 19:00 96.6 75 20 108/55 98 Room Air 11/28/16 16:00 96.6 78 18 100/59 98 Room Air Intake and Output 11/28/16 11/29/16 19:00 07:00 Intake Total 360 ml 360 ml Output Total 1400 ml 200 ml Balance -1040 ml 160 ml Intake Oral 360 ml 360 ml Output Urine Total 1400 ml 200 ml # Voids 4 # Bowel Movements 1 Laboratory Tests Test 11/29/16 05:05 White Blood Count 6.7 K/UL (4.8-10.8) Red Blood Count 4.34 M/UL (4.70-6.10) L Hemoglobin 13.5 G/DL (14.2-18.0) L Hematocrit 39.6 % (42.0-52.0) L Mean Corpuscular Volume 91 FL (80-99) Mean Corpuscular Hemoglobin 31.0 PG (27.0-31.0) Mean Corpuscular Hemoglobin Concent 34.0 G/DL (32.0-36.0) Red Cell Distribution Width 16.9 % (11.6-14.8) H Platelet Count 82 K/UL (150-450) L Mean Platelet Volume 7.1 FL (6.5-10.1) Neutrophils (%) (Auto) % (45.0-75.0) Lymphocytes (%) (Auto) % (20.0-45.0) Monocytes (%) (Auto) % (1.0-10.0) Eosinophils (%) (Auto) % (0.0-3.0) Basophils (%) (Auto) % (0.0-2.0) Differential Total Cells Counted 100 Neutrophils % (Manual) 80 % (45-75) H Lymphocytes % (Manual) 11 % (20-45) L Monocytes % (Manual) 5 % (1-10) Eosinophils % (Manual) 2 % (0-3) Basophils % (Manual) 1 % (0-2) Band Neutrophils 1 % (0-8) Platelet Estimate Decreased L Platelet Morphology Normal Red Blood Cell Morphology Normal Sodium Level 125 mEQ/L (135-145) L Potassium Level 4.5 mEQ/L (3.4-4.9) Chloride Level 88 mEQ/L (98-107) L Carbon Dioxide Level 21 mEQ/L (20-30) Anion Gap 16 (5-15) H Blood Urea Nitrogen 16 mg/dL (7-23) Creatinine 0.8 mg/dL (0.7-1.2) Estimat Glomerular Filtration Rate > 60 mL/min (>60) Glucose Level 132 mg/dL (74-106) H Calcium Level 8.4 mg/dL (8.6-10.2) L Magnesium Level 2.2 mg/dL (1.7-2.5) Total Bilirubin 3.2 mg/dL (0.0-1.2) H Direct Bilirubin 1.2 mg/dL (0.1-0.3) H Aspartate Amino Transf (AST/SGOT) 57 U/L (5-40) H Alanine Aminotransferase (ALT/SGPT) 29 U/L (3-41) Alkaline Phosphatase 122 U/L (40-129) Total Protein 5.9 g/dL (6.6-8.7) L Albumin 2.4 g/dL (3.5-5.2) L Globulin 3.5 g/dL Albumin/Globulin Ratio 0.6 (1.0-2.7) L Cortisol AM Sample Pending Height (Feet): 5 Height (Inches): 5.00 Weight (Pounds): 200 General Appearance: no apparent distress, alert, other - jaundice Cardiovascular: normal rate Respiratory/Chest: normal breath sounds, no respiratory distress Abdominal Exam: non tender, soft, distended, ascites Objective Procedure: US ABD Complete Indication:Abdominal pain Impression: Liver cirrhosis. Mild ascites. Liver cysts Thickened gallbladder wall, nonspecific Dara Donaldson N.P. Nov 29, 2016 13:25
[2016-11-29] MEDS ORDERED: Influenza Virus Vaccine 0.5ml IM ONE (16:00)
--- NOTE | 2016-11-29 16:15 | Pulmonology Progress Note ---
Assessment/Plan Problems: (1) Acute encephalopathy (2) End stage liver disease (3) Ascites (4) Hypoalbuminemia (5) Hepatic encephalopathy Assessment/Plan improving NA better check electrolytes d/w about palliative care once Na is better, we will send him hose under hospice care. Subjective ROS Limited/Unobtainable: Yes Constitutional: Reports: chills, fatigue Neurologic: Reports: confusion, weakness Allergies: Coded Allergies: No Known Allergies (Unverified , 11/25/16) Objective Last 24 Hour Vital Signs Date Time Temp Pulse Resp B/P Pulse Ox O2 Delivery O2 Flow Rate FiO2 11/29/16 11:43 98.1 84 16 114/75 99 Room Air 11/29/16 08:57 97.9 84 16 126/73 100 Room Air 11/29/16 04:00 98.2 73 18 126/76 98 Room Air 11/29/16 00:00 98.0 72 18 111/59 98 Room Air 11/28/16 19:00 96.6 75 20 108/55 98 Room Air Intake and Output 11/28/16 11/29/16 19:00 07:00 Intake Total 360 ml 360 ml Output Total 1400 ml 200 ml Balance -1040 ml 160 ml Intake Oral 360 ml 360 ml Output Urine Total 1400 ml 200 ml # Voids 4 # Bowel Movements 1 General Appearance: no acute distress HEENT: normocephalic, atraumatic, PERRL Respiratory/Chest: chest wall non-tender, decreased breath sounds, accessory muscle use Cardiovascular: normal peripheral pulses, normal rate, regular rhythm, no JVD Abdomen: hypoactive bowel sounds, distended, guarding, tender, rebound tenderness, hepatomegaly Genitourinary: normal external genitalia Extremities: no cyanosis Neurologic/Psychiatric: negative checker II-XII grossly normal, responsive, disoriented, depressed affect Microbiology Date/Time Source Procedure Growth Status 11/27/16 19:00 Abdominal Fluid Gram Stain - Final Resulted 11/27/16 19:00 Abdominal Fluid Body Fluid Culture - Preliminary NO GROWTH AFTER 24 HOURS Resulted Laboratory Tests 11/29/16 05:05: White Blood Count 6.7, Red Blood Count 4.34L, Hemoglobin 13.5L, Hematocrit 39.6L , Mean Corpuscular Volume 91, Mean Corpuscular Hemoglobin 31.0, Mean Corpuscular Hemoglobin Concent 34.0, Red Cell Distribution Width 16.9H, Platelet Count 82L, Mean Platelet Volume 7.1, Neutrophils (%) (Auto) , Lymphocytes (%) (Auto) , Monocytes (%) (Auto) , Eosinophils (%) (Auto) , Basophils (%) (Auto) , Differential Total Cells Counted 100, Neutrophils % ( Manual) 80H, Lymphocytes % (Manual) 11L, Monocytes % (Manual) 5, Eosinophils % ( Manual) 2, Basophils % (Manual) 1, Band Neutrophils 1, Platelet Estimate DecreasedL, Platelet Morphology Normal, Red Blood Cell Morphology Normal, Sodium Level 125L, Potassium Level 4.5, Chloride Level 88L, Carbon Dioxide Level 21, Anion Gap 16H, Blood Urea Nitrogen 16, Creatinine 0.8, Estimat Glomerular Filtration Rate > 60, Glucose Level 132H, Calcium Level 8.4L, Magnesium Level 2.2, Total Bilirubin 3.2H, Direct Bilirubin 1.2H, Aspartate Amino Transf (AST/SGOT) 57H, Alanine Aminotransferase (ALT/SGPT) 29, Alkaline Phosphatase 122, Total Protein 5.9L, Albumin 2.4L, Globulin 3.5, Albumin/ Globulin Ratio 0.6L, Cortisol AM Sample [Pending] Current Medications Medications (Trade) Dose Ordered Sig/Sparkle Route PRN Reason Start Time Stop Time Status Last Admin Dose Admin Acetaminophen (Tylenol) 650 mg Q4H PRN ORAL fever 11/25/16 23:15 12/25/16 23:14 11/27/16 14:38 Aspirin (Ecotrin) 81 mg DAILY ORAL 11/26/16 09:00 12/26/16 08:59 11/29/16 08:08 Cefepime HCl/ Dextrose (Maxipime/D5W 50ml) 50 ml @ 50 mls/hr Q12HR IVPB 11/29/16 09:00 12/03/16 08:59 11/29/16 08:19 Dextrose (Dextrose 50%) STAT PRN IV Hypoglycemia 11/25/16 23:15 12/25/16 23:14 Furosemide (Lasix) 20 mg DAILY ORAL 11/30/16 09:00 12/30/16 08:59 Lactulose (Cephulac) 30 gm TID ORAL 11/27/16 13:00 12/27/16 12:59 11/29/16 13:25 Lorazepam (Ativan 2mg/ml 1ml) 0.5 mg Q4H PRN IV For Anxiety 11/25/16 23:15 12/02/16 23:14 Morphine Sulfate 4 mg 4 mg Q4H PRN IVP Severe Pain (Pain Scale 7-10) 11/27/16 14:45 12/04/16 14:44 Ondansetron HCl (Zofran) 4 mg Q6H PRN IVP Nausea & Vomiting 11/25/16 23:15 12/25/16 23:14 Pantoprazole (Protonix) 40 mg DAILY ORAL 11/30/16 09:00 12/30/16 08:59 Polyethylene Glycol (Miralax) 17 gm HSPRN PRN ORAL Constipation 11/25/16 23:15 12/25/16 23:14 Rifaximin (Xifaxan) 550 mg EVERY 12 HOURS ORAL 11/26/16 21:00 12/03/16 20:59 11/29/16 08:08 Spironolactone (Aldactone) 25 mg EVERY 12 HOURS ORAL 11/29/16 21:00 12/29/16 20:59 Temazepam (Restoril) 7.5 mg HSPRN PRN ORAL Insomnia 11/27/16 10:30 12/04/16 10:29 MARQUITA EDGAR Nov 29, 2016 16:15
[2016-11-29] MEDS ORDERED: Spironolactone 25mg tab ORAL SCH (21:00)
[2016-11-29 21:09] LABS: PROTEIN, BODY FLUID 0.9 g/dL (.)
[2016-12-02 14:27] LABS: CORTISOL AM 10.4 ug/dL (6.0-20.0)
--- NOTE | 2016-12-03 11:40 | Discharge Summary ---
Discharge Summary Hospital Course Date of Admission Nov 25, 2016 at 22:36 Date of Discharge Nov 29, 2016 at 16:30 Admitting Diagnosis hepatic encephalopathy RUY Contreras is a 66 year old male who was admitted on Nov 25, 2016 at 22:36 for Hepatic Encephalopathy Hospital Course dc summary dictated # [id number] Discharge Medications Continued Medications: Furosemide* (Lasix*) 80 Mg Tablet 80 MG ORAL DAILY, TAB Gabapentin* (Gabapentin*) 100 Mg Capsule 100 MG ORAL THREE TIMES A DAY, CAP Spironolactone* (Spironolactone*) 100 Mg Tablet 50 MG ORAL TWICE A DAY, TAB Discharge Discharge Disposition Patient was discharged to SNF/Subacute Facility(03) Discharge Diagnoses: Discharge Instructions Discharge Instructions Special Instructions I have been assigned to complete a D/C Summary on this account. I was not involved in the patient management Wendy Marino NP ([facility]) Dec 03, 2016 11:40
--- NOTE | 2016-12-04 02:37 | Discharge Summary 2 SIG ---
DATE OF ADMISSION: 11/25/2016 DATE OF DISCHARGE: 11/29/2016 The patient was admitted under Dr. Lo. REASON FOR ADMISSION: 66-year-old male, was brought to the emergency room by paramedics due to the altered mental status. Initially, reported that she felt that the patient took too many sleeping pills including Ambien. However, she had a paperwork from the [facility].which revealed that the patient had a liver failure and hepatic encephalopathy. According to the , the patient was more lethargic and more slow to respond. He denied any complaint of abdominal pain, vomiting, or diarrhea. The patient was afebrile. No leukocytosis. Laboratory workup revealed acute hyponatremia with sodium of 117 and elevated LFT and bilirubin. Potassium was 5.5 along with sodium 114. Per ED doctor, no need of treatment with hypertonic saline in ED, likely chronic component due to the patient's presentation. The patient was admitted to Med/Surg floor for further management. ADMITTING DIAGNOSES: 1. Acute hepatic encephalopathy. 2. Liver disease. 3. Acute hyponatremia. 4. Hyperkalemia. 5. Abnormal Liver function tests. HOSPITAL STAY: The patient undergone ultrasound-guided paracentesis, which yielded 4.4 liters of fluid. Peritoneal fluid culture was negative, and pathology for peritoneal fluid was negative for malignant cells. Abdominal ultrasound done next day after paracentesis revealed liver cirrhosis, mild ascites, liver cysts, and thickened gallbladder wall, nonspecific. Venous duplex of bilateral lower extremities was negative for acute DVT.. Combine Mechanic and GI doctor were both involved in the care of this patient. The practice clinician concluded that hyponatremia was secondary to edematous state due to the liver failure and recommended hydration with normal saline and slow diuresis. Sodium improved to 125 prior to discharge. Hyperkalemia addressed and potassium stabilized prior to discharge. The patient was noted to have low magnesium. Magnesium was replaced and currently stable. Per GI, the patient was treated with lactulose and Rifaximin for hepatic encephalopathy. LFTs and bilirubin were checked daily, without much change. Apha-fetoprotein elevated at 10.2. GI recommended to continue the patient on PPI, continue diuretic, and consider esophagogastroduodenoscopy as outpatient to evaluate for esophageal varices. Hemoglobin and hematocrit were stable. No evidence of bleeding. Urine tox screen was negative. Hepatitis panel was negative. Urinalysis, no evidence of infection. Dr. Lo discussed with the patient's the patient's medical condition and poor prognosis due to the fact that the patient has end-stage liver disease . Dr. Lo discussed palliative care , and agreed to the hospice services with palliative care. The patient was discharged home with hospice services. DISCHARGE MEDICATIONS: See medication reconciliation list. FINAL DIAGNOSES: 1. Acute toxic encephalopathy secondary to hepatic encephalopathy. 2. Hepatic encephalopathy. 3. End-stage liver disease. 4. Ascites. 5. Status post paracentesis on 11/25/2016 (with 4.4 liters of fluid removal). 6. Acute hyponatremia, improved -secondary to liver failure and edematous state. 7. Electrolyte imbalances (hyperkalemia and hypomagnesemia), resolved. 8. Abnormal liver function tests. DISCHARGE INSTRUCTIONS: The patient discharged home with hospice services and comfort measure. Elise Lo M.D. I have been assigned to dictate discharge summary on this account and I was not involved in the patient's management. Wendy Marino ([facility]), N.P. DR: TORO JOB#: [id number] CC: KERON
--- NOTE | 2016-12-07 17:31 | Diagnostic Imaging Report ---
APPROVED REPORT CPT Code: 61744 Present Symptoms Comments: R/O DVT Extremity weakness BILATERAL: Imaging reveals a patent deep venous system bilaterally. There is no evidence of thrombus within the femoral, popliteal or right tibial segments. The greater saphenous veins are also within normal limits. Doppler indicates normal spontaneous flow within these segments. The left calf veins were not well visualized.
== END 2016-11-29 16:30 | disposition short-term general hospital (02) | DRG 442 ==
LOC: EDBD 21:10 → EMR 22:14 → 4E 22:36 → EDBEDREQ 22:42
PROC: 0W9G3ZZ Drainage of Peritoneal Cavity, Percutaneous Approach (ICD-10-PCS; principal; 2016-11-25)
DX: K72.00 Acute and subacute hepatic failure without coma (principal); R18.8 Other ascites; E88.09 Other disorders of plasma-protein metabolism, not elsewhere classified; E87.1 Hypo-osmolality and hyponatremia; E83.42 Hypomagnesemia; K74.60 Unspecified cirrhosis of liver; E87.5 Hyperkalemia; R33.8 Other retention of urine; Z23 Encounter for immunization
CPT/HCPCS: 36415; 76700; 76942; 80053; 80061; 80300; 80329; 81003; 82105; 82140; 82248; 82533; 83735; 84100; 84443; 84484; 85007; 85025; 85610; 85730; 86705; 86709; 86803; 87070; 87205; 87340; 89051; 93005; 93970; Q2036